=== PATIENT | male | born 1980 | race Caucasian/White ===

== ENCOUNTER 2022-06-26 16:33 | Outpatient (CLI) | payer OTHER, SELFPAY ==
[2022-07-01 19:41] LABS: Gliadin AB, IgG <1.0 U/mL (<15.0); TTG IGA AB <1.0 U/mL (<15.0)
== END 2022-06-26 16:34 | disposition home or self-care (01) ==
LOC: ANHLAB 16:35
PROVIDERS: Visit Provider Nurse Practitioner Family
DX: R19.7 Diarrhea, unspecified (principal); R14.0 Abdominal distension (gaseous); R10.9 Unspecified abdominal pain
CPT/HCPCS: 36415; 83516; 84443; 86255

== ENCOUNTER 2022-08-12 09:00 | Outpatient (NON) | payer OTHER, SELFPAY | END 2022-08-12 09:01 | disposition home or self-care (01) | LOC: ANHLAB 08-13 07:56 | PROVIDERS: Visit Provider Internal Medicine Gastroenterology | DX: R10.9 Unspecified abdominal pain (principal) | CPT/HCPCS: 88305 ==

== ENCOUNTER 2022-08-12 11:15 | Day surgery (SDC) | payer OTHER, SELFPAY ==
[2022-07-17 14:52] VITALS: BMI 30.2
[2022-08-01 11:54] VITALS: BMI 29.2
[2022-08-12 11:35] VITALS: BP 140/102; PULSE 79; RESP 20; TEMP 36.3; O2SAT 100
[2022-08-12] MEDS: LACTATED RINGERS 1,000 ML 150 ML IV CONT (11:49)
--- NOTE | 2022-08-12 11:54 | P.PNAN_ITS ---
Anes - Initial Pre Proc Eval Procedure: Operation Date: 08/12/22 13:30 Proposed Procedures p Diagnostic Colonoscopy - Zafar Reed MD Date/Time: 08/12/22 11:54 Surgeon: Zafar Reed MD Pre Op Diagnosis: Diarrhea and Abdominal Bloating Patient Data Age: 42 Gender: M Height: 1.8 m Weight: 97.4 kg Last Vital Signs Temp 36.3 C L 08/12/22 11:35 Pulse 79 08/12/22 11:35 Resp 20 08/12/22 11:35 BP 140/102 H 08/12/22 11:35 Pulse Ox 100 08/12/22 11:35 O2 Del Method Room Air 08/12/22 11:35 Allergies Allergy/AdvReac Type Severity Reaction Status Date / Time No Known Allergies Allergy Verified 08/12/22 11:37 Home Medications Medication Instructions Recorded Confirmed Type bupropion HCl 300 mg 24 hr tablet, 300 mg PO QAM 06/26/22 06/26/22 History extended release hyoscyamine sulfate 0.125 mg tablet 0.125 mg PO QID PRN abdominal 06/26/22 08/01/22 Rx discomfort 1 month #120 tabs lisinopril 20 mg tablet 20 mg PO DAILY 06/26/22 08/01/22 History sertraline 50 mg tablet 50 mg PO DAILY 06/26/22 08/12/22 History Patient hx anesthesia problems: none Family hx anesthesia problems: none Results Review: All pre-operative results and documents have been reviewed as part of the pre- operative evaluation. [facility] Past Medical History Medical History Abdominal pain Anxiety Frequent loose stools High blood pressure IBS (irritable colon syndrome) Surgical History Surgical History H/O hernia repair Social History Social History Smoking status: Never smoker Alcohol intake: current Drinks per week: 2 Substance use: never Substance use type: does not use Living arrangements: with family Spiritual care concerns: No Anes - Eval Final PreProcedure Day of Procedure 08/12/22 11:54 Patient weight: overweight Heart: regular rate and rhythm Lungs: clear to auscultation Airway: Mallampati scale class II Neurological: alert and oriented Last oral intake: >/= 8 hours ASA classification: III Emergent: no Anesthetic plan: proceed Anesthesia type and monitoring: general GIVS and standard monitoring Results Review: All pre-operative results and documents have been reviewed as part of the pre- operative evaluation. Informed Consent: The patient's anesthetic plan and its attendant risks and benefits were discussed with the patient/family/POA. Questions were solicited and answers provided to the satisfaction of the patient/family/POA.
--- NOTE | 2022-08-12 12:14 | PM.HPGS ---
History of Present Illness History of Present Illness Consent: Risks, benefits, and alternatives have been discussed and questions answered. Patient agrees to proceed with procedure. Chief complaint: Diarrhea and Abdominal Bloating Narrative: Dilip Coats is a 42 year old male with intermittent abdominal pain and sometimes loose stools that has been going on for quite some time, never had scopes. Serology for celiac negative, hyoscyamine helping some with pain. Review of Systems Constitutional: Constitutional: Denies headache(s) and Denies weakness Eyes: Eyes: Denies blurry vision ENT: Reports Normal hearing present, Denies headache(s) and Denies neck pain Cardiovascular: Cardiovascular: Denies chest pain and Denies dyspnea Respiratory: Respiratory: Denies dyspnea Gastrointestinal: Gastrointestinal: Reports no additional gastrointestinal complaints Genitourinary: Genitourinary: Denies dysuria Musculoskeletal: Musculoskeletal: Denies neck pain Integumentary/Breasts: Skin/Breast: Denies dry skin Neurologic: Reports Normal hearing present, Denies headache(s) and Denies weakness Psychiatric: Psychiatric: Denies anxiety Endocrine: Endocrine: Denies change in body appearance Hematologic/Lymphatic: Hematologic/Lymphatic: Denies easy bleeding Allergic/Immunologic: Allergic/Immunologic: Denies urticaria PMFSH Past Medical History Medical History Abdominal pain Anxiety Frequent loose stools High blood pressure IBS (irritable colon syndrome) Surgical History Surgical History H/O hernia repair Social History Social History Smoking status: Never smoker Alcohol intake: current Drinks per week: 2 Substance use: never Substance use type: does not use Living arrangements: with family Spiritual care concerns: No Meds Home Medications and Allergies Home Medications Medication Instructions Recorded Confirmed Type bupropion HCl 300 mg 24 hr tablet, 300 mg PO QAM 06/26/22 06/26/22 History extended release hyoscyamine sulfate 0.125 mg tablet 0.125 mg PO QID PRN abdominal 06/26/22 08/01/22 Rx discomfort 1 month #120 tabs lisinopril 20 mg tablet 20 mg PO DAILY 06/26/22 08/01/22 History sertraline 50 mg tablet 50 mg PO DAILY 06/26/22 08/12/22 History Allergies Allergy/AdvReac Type Severity Reaction Status Date / Time No Known Allergies Allergy Verified 08/12/22 11:37 Vital Signs Vital Signs - 24 hr 08/12/22 11:35 Temperature 97.4 F L Pulse Rate 79 Respiratory Rate 20 Blood Pressure 140/102 H Pulse Oximetry 100 Oxygen Delivery Room Air Exam Const: General: comfortable and no acute distress HENMT: Face/Nose/Sinus: Normal nares present Eyes: General: appearance normal, both eyes and all related structures Neck: Neck: no JVD Resp: Auscultation: clear to auscultation bilaterally Cardio: Rate: regular rate Rhythm: regular rhythm GI: Inspection: non-distended GI Palp: Yes Soft to palpation Skin: General skin exam: normal color Neuro: General: gait normal Speech: normal speech Extrem: General: normal to inspection Psych: Mental Status: mental status grossly normal Assessment and Plan Assessment and plan (1) Frequent loose stools: Code(s): R19.7 - Diarrhea, unspecified Status: Acute (2) Abdominal pain: Code(s): R10.9 - Unspecified abdominal pain Status: Acute Assessment and Plan: probably ibs related colonoscopy today
[2022-08-12 12:31] VITALS: BP 118/81; PULSE 84; RESP 15; O2SAT 95
[2022-08-12 12:41] VITALS: BP 130/85; PULSE 82; RESP 15; O2SAT 100
--- NOTE | 2022-08-12 12:43 | WPDANESPN ---
Anes - Prog Note Post-Op Date/Time: 08/12/22 12:43 Cardiovascular status: normal Respiratory status: normal Airway patency: baseline Mental status: baseline Post-Op hydration status: normal Vital Signs: Last Vital Signs Temp 36.3 C L 08/12/22 11:35 Pulse 84 08/12/22 12:31 Resp 15 08/12/22 12:31 BP 118/81 08/12/22 12:31 Pulse Ox 95 08/12/22 12:31 O2 Del Method Room Air 08/12/22 12:31 Pain Score (VAS): 0 I/O: Intake & Output 08/11/22 08/12/22 08/12/22 23:59 07:59 15:59 Intake Total 400 Balance 400 Patient Feedback: Patient satisfied with anesthetic care.
[2022-08-12 12:51] VITALS: BP 130/95; PULSE 77; RESP 16; O2SAT 100
== END 2022-08-12 13:13 | disposition home or self-care (01) ==
PROVIDERS: Visit Provider Internal Medicine Gastroenterology
PROC: 0DJD8ZZ Inspection of Lower Intestinal Tract, Via Natural or Artificial Opening Endoscopic (ICD-10-PCS; CPT 45378; principal; 2022-08-12 13:30)
DX: R19.7 Diarrhea, unspecified (principal)
CPT/HCPCS: 45380